=== PATIENT | female | born 1960 | race Caucasian/White ===

== ENCOUNTER 2016-12-18 17:26 | Emergency (ER) | payer OTHER ==
[~2016-12-18] VITALS: Ht 160 cm; Wt 66.8 kg
[~2016-12-18 17:26] MED LIST: DICY10SO PO; OMEP20TA86 PO; SIMV5TAB7 PO; lisinopril
[2016-12-18 17:28] VITALS: BP 131/90; PULSE 98; RESP 20; O2SAT 99
[2016-12-18 18:28] LABS: BASOPHILS % (AUTO) 0.4 % (0-3); MONOCYTES % (AUTO) 12.3 % (4-12); Mean Corpuscular Hemoglobin 29.8 pg (27.0-35.0); Mean Corpuscular Volume 91.7 fL (81-100); NEUTROPHILS % (AUTO) 56.7 % (40-74); Platelet Count 250 bil/L (150-400)
--- NOTE | 2016-12-18 18:28 | ED.REPORT ---
HPI-Abd Pain F 40 and Over Date of Service Dec 18, 2016 ED Provider: Addi Payne DO 56 y/o female with a hx of ulcerative colitis presents to the ED complaining of abdominal pain, onset 2 days ago which worsened last night. The pt had to leave work due to the pain. Associated sx include nausea and distention. She denies vomiting, fever and passing gas. Her last bowel movement was 2 days ago. She took laxatives as well as Vicodin, with no relief. Nursing Notes Stated Complaint: STOMACHE Chief Complaint: Female Abdominal Pain Nursing Notes Reviewed: Yes Allergies: Coded Allergies: Penicillins (Verified Allergy, 02/26/13) aspirin (Verified Allergy, 02/26/13) Scheduled ([lisinopril]) 40 MG DAILY Omeprazole-Expunged Drug, Do Not Renew! (Omeprazole-Expunged Drug, Do Not Renew! ) 20 Mg Tablet.dr 20 MG PO DAILY Simvastatin-Expunged Drug, Choose New Med! (Simvastatin-Expunged Drug, Choose New Med!) 5 Mg Tablet 5 MG PO HS Scheduled PRN Dicyclomine-Expunged Drug, Do Not Renew! (Dicyclomine-Expunged Drug, Do Not Renew!) 10 Mg/5 Ml Solution 20 MG PO TID PRN PRN for abdominal cramping Polyethylene Glycol 3350 (Miralax) 17 Gm Powd.pack 17 GM PO DAILY PRN PRN For Constipation General Time Seen by MD: 18:26 Chief Complaint Abdominal pain Hx Obtained From: Patient Arrived By: Walk-in Sudden in Onset?: Yes Onset Occurred: Yesterday Symptom Duration: Since onset Location: : Periumbilical Quality: Painful Radiation: : Does not radiate Severity: Current: Moderate Severity: Maximum: Moderate Recent Healthcare: Recent doctor visit Similar Sx Previous: Yes Past Medical History Past Medical History ulcerative colitis Past Surgical History Abdominal surgeries collectomy Reports: Appendectomy Smoking History Current Some Day Smoker Ambulatory Status Independent Review of Systems Reports: Abdominal distention Constitutional: Denies: Fever GI: Reports: Abdominal pain, Nausea, Denies: Vomiting Complete sys rev & neg: except as marked. Physical Exam Vital Signs Vital Signs (First) Date Time Temp Pulse Resp B/P Pulse Ox O2 Delivery O2 Flow Rate FiO2 12/18/16 17:28 36.2 98 20 131/90 99 Room Air Initial VS: Reviewed Head / Eyes: Atraumatic, Normocephalic ENT: Mucous membranes moist, Conjunctiva normal, No scleral icterus Neck: Supple, Non-tender, Full range of motion Extremities: Vascular intact, Neuro intact, No swelling, No tenderness Skin: Warm, Dry, No cyanosis Neurologic: Alert, Oriented, Nonfocal General/Constitutional: Awake, Alert, Cooperative Distress / Hydration: Positive: Distress moderate Respiratory / Chest: Atraumatic, Breath sounds NL, Breath sounds = bilat, No respiratory distress, No rales, No rhonchi, No wheezing Cardiovascular: Heart rate NL, Regular rhythm, Heart sounds NL, No gallop, No murmurs, No rubs Abdomen: Atraumatic Abdomen tender and distended. Mild tympany on exam. Back: Atraumatic, Full range of motion Interpretation & Diagnostics Lab Results Interpretation Result Diagram: 12/18/16180912/18/16 181 Test 12/18/16 18:10 12/18/16 20:25 White Blood Count 5.7th/mm3 (3.8-10.1) Red Blood Count 4.09mil/mm3 (3.90-5.20) Hemoglobin 12.2g/dL (12.0-15.6) Hematocrit 37.5% (35.0-46.0) Mean Corpuscular Volume 91.7fL (81-100) Mean Corpuscular Hemoglobin 29.8pg (27.0-35.0) Mean Corpuscular Hemoglobin Concent 32.5% (32.0-37.0) Red Cell Distribution Width 12.7% (12.3-15.4) Platelet Count 250bil/L (150-400) Neutrophils (%) (Auto) 56.7% (40-74) Lymphocytes (%) (Auto) 26.4% (14-46) Monocytes (%) (Auto) 12.3% (4-12) Eosinophils (%) (Auto) 4.0% (0-5) Basophils (%) (Auto) 0.4% (0-3) Sodium Level 137mEq/L (134-144) Potassium Level 4.1mEq/L (3.5-5.2) Chloride Level 101mEq/L (97-108) Carbon Dioxide Level 23mmol/L (18-29) Blood Urea Nitrogen 16mg/dL (6-24) Creatinine 0.67mg/dL (0.57-1.00) Estimat Glomerular Filtration Rate 131mL/min (>59) Glucose Level 135mg/dL (60-99) Calcium Level 9.2mg/dL (8.5-10.1) Magnesium Level 2.1mg/dL (1.6-2.6) Total Bilirubin 0.3mg/dL (0.0-1.2) Aspartate Amino Transf (AST/SGOT) 18U/L (0-50) Alanine Aminotransferase (ALT/SGPT) 22U/L (0-32) Alkaline Phosphatase 76U/L (25-150) Total Protein 7.5g/dL (6.4-8.4) Albumin 4.2g/dL (3.4-5.0) Lipase 19U/L (13-60) Hold Armas Top Tube Received (Received) Hold Urine Received (Received) CT Abd / Pelvis Interpretation IMPRESSION: 1. No definite acute intra-abdominal abnormality. 2. Mild superior endplate compression deformity of the T12 vertebral body of indeterminate acuity but new from the prior study. Dictated by: Carlos A Parra M.D. on 12/18/2016 at 19:46 Approved by: Carlos A Parra M.D. on 12/18/2016 at 19:52 Study type: Abdominal CT IV contrast Interpretation / Wet Read by: Interpret - Radiologist Re-Eval/Medical Decision Med Decision/Clinical Course Patient has constipation without obstruction or other lab abnormalities. Will discharge with further bowel regimen. Return in follow-up precautions given. Source of Hx: Old records Re-Evaluation/Progress : Time of Eval: 20:20 Patient Status: Condition improved Re-Evaluation/Progress Note: Rechecked pt. Discussed lab, imaging results and diagnosis. Informed the pt of the plan to discharge. Pt understands and agrees with plan. F/U instructions and RTER warning given. All questions addressed. Counseled Regarding: Diagnosis, Lab results, Need for follow-up, When/why to return to ED Discharge & Departure Primary Impression: Constipation Disposition: Home Discharge Condition All VS Reviewed: Yes Condition: Stable Patient Instructions: Constipation (ED) Additional Instructions: Thank you for entrusting us with your care today. Your imaging results were normal. Take MiraLax everyday for constipation. Follow up with your primary care provider for further evaluation. Return to the emergency department in case of severe pain or any new or concerning symptoms. Referrals: Janine Fermin MD (PCP) Scribe Attestation Portions of this note were transcribed by Kadie Garrison. I, , personally performed the history, physical exam and medical decision-making;I reviewed and confirmed the accuracy of the information in the transcribed note. Signed by Pradeep Cohn. 12/18/16 20:27 copies to: Janine Fermin MD, Timothy S DO Dec 18, 2016 18:28 Kadie Garrison Dec 18, 2016 18:35
[2016-12-18] MEDS ORDERED: 0.9% Sodium Chloride 1,000 ML IV ONE (18:33)
[2016-12-18] MEDS ORDERED: HYDROmorphone 0.5 mg/0.5 mL iSecure Syringe IVPUSH PRN (18:35)
[2016-12-18] MEDS ORDERED: Ondansetron 2 mg/mL 2 mL Inj IVPUSH PRN (18:35)
[2016-12-18 18:49] LABS: Magnesium 2.1 mg/dL (1.6-2.6)
--- NOTE | 2016-12-18 19:53 | DRSVH ---
PROCEDURE: CT ABDOMEN AND PELVIS WITH CONTRAST ([id number]) INDICATIONS: abd pain TECHNIQUE: After the administration of oral and intravenous contrast, 5 mm thick sections acquired from the diap hragms to the symphysis. 5 mm thick coronal and sagittal reformats were performed. For radiation do se reduction, the following was used: automated exposure control, adjustment of mA and/or kV accordi ng to patient size. COMPARISON: [facility], CT, ABD/PELVIS W/CON (PN), 02/27/2013, 3:00. FINDINGS: Image quality: Excellent. ABDOMEN: Lung bases: There are centrilobular emphysematous changes in the lung bases. There is mild linear sc arring or atelectasis also noted. Heart size is normal. Solid organs: There is hypoattenuation of the liver compatible with fatty infiltration. The spleen i s normal size. The gallbladder is within normal limits without calcified gallstones. Biliary system is non-dilated. Pancreas enhances normally. No adrenal nodules. Kidneys are normal in size and en hancement, without hydronephrosis. Peritoneum and bowel: Stomach, small bowel, and colon loops are normal in caliber and wall thickness . The appendix is not discretely identified and may be surgically absent. No pericecal inflammatory changes to suggest appendicitis. No free fluid or air. Nodes and vessels: No retroperitoneal or mesenteric adenopathy. Aorta and inferior vena cava are no rmal in caliber. Miscellaneous: No ventral hernias. PELVIS: Genitourinary: Bladder wall thickness is normal. The uterus is surgically absent. Miscellaneous: No inguinal hernias or adenopathy. Bones: No suspicious bony lesions. There is a mild superior endplate compression deformity of the T 12 vertebral body of indeterminate acuity but new from the prior study. There is less than 20% loss of height. No retropulsed bony fragments. IMPRESSION: 1. No definite acute intra-abdominal abnormality. 2. Mild superior endplate compression deformity of the T12 vertebral body of indeterminate acuity bu t new from the prior study. Dictated by: Carlos A Parra M.D. on 12/18/2016 at 19:46 Approved by: Carlos A Parra M.D. on 12/18/2016 at 19:52
[2016-12-18] MEDS ORDERED: POLY17PO6 PO (20:29)
[2016-12-18 20:33] VITALS: PULSE 78; RESP 16
== END 2016-12-18 20:34 | disposition home or self-care (01) ==
LOC: SED 17:26
DX: K59.00 Constipation, unspecified (principal); R11.0 Nausea; R14.0 Abdominal distension (gaseous); F17.200 Nicotine dependence, unspecified, uncomplicated; Z88.0 Allergy status to penicillin; Z88.6 Allergy status to analgesic agent
CPT/HCPCS: 36415; 74177; 80053; 83690; 83735; 85025; 96361; 96374; 96375; 99285; J1170; J2405; J7030; Q9967